=== PATIENT | female | born 1975 | race Caucasian/White ===

== ENCOUNTER 2023-05-11 21:52 | Emergency (ER) | payer MEDICAID, SELFPAY ==
--- NOTE | ~2023-05-11 | CT_ITS ---
CT of the Abdomen and Pelvis: Indication: Right flank pain Technique: 2.5 mm axial scans were obtained through the abdomen and pelvis following intravenous adm inistration of 100 cc of Omnipaque 350. Dose reduction technique was used on this scan by utilizing a utomated exposure control and iterative reconstruction technique. The dose-length product (DLP) was 1 847.55 mGy-cm. Findings: Scans through the lung bases are unremarkable. Diffuse fatty infiltration of the liver noted. Gallstones present. The spleen, pancreas, adrenals and kidneys are within normal limits. No evidence of aortic aneurysm. No lymphadenopathy. No bowel obstruction or bowel wall thickening. There is no evidence to suggest acute appendicitis. Images through the pelvis were performed. Urinary bladder unremarkable. No pelvic mass seen. No ascit es. Impression: Diffuse fatty infiltration of the liver. Cholelithiasis. Reviewed, dictated and finalized at [facility]. R SYSTEM DISPATCHER Impression: Diffuse fatty infiltration of the liver. Cholelithiasis.
[2023-05-11 22:12] VITALS: BP 136/87; PULSE 112; RESP 20; TEMP 37; O2SAT 95
[2023-05-11 22:49] LABS: Appearance Urine Cloudy (Clear); Bacteria Urine 4+ /hpf; Bilirubin Urine Negative (Negative); Blood Urine 2+ (Negative); Color Urine Yellow (Yellow); Glucose Urine UA 3+ mg/dL (Negative); Ketones Urine 2+ mg/dL (Negative); Leukocyte Esterase Ur 1+ LEU/UL (Negative); Nitrate Urine Positive (Negative); Non Pathogenic Casts 0-2; Protein Urine 1+ mg/dL (Negative); RBC Urine 0-2 /hpf (0-2); Squamous Epithelial Cell Urine None seen /hpf (Few); Urobilinogen Urine 0.2 mg/dL (<2.0); WBC Clumps Urine Present /HPF; WBC Urine >100 /hpf; pH Urine 5.5 (5.0-9.0)
[2023-05-11 22:57] LABS: Add Urine Microscopic? YES; Specific Grav Ur 1.037 (1.001-1.035)
--- NOTE | 2023-05-12 00:13 | ED.FEMALEGU ---
HPI - Female Genitourinary General Chief complaint: Urogenital-Female <Boogie Atkins PA-C - Last Filed: 05/12/23 17:02> Stated complaint: urinary incontinence/R flank pain <DANILO Graff Last Filed: 05/12/23 17:02> Time Seen by Provider: 05/11/23 23:41 <DANILO Graff Last Filed: 05/12/23 17:02> Source: patient <DANILO Graff Last Filed: 05/12/23 17:02> Mode of arrival: ambulatory <DANILO Graff Last Filed: 05/12/23 17:02> Limitations: no limitations <DANILO Graff Last Filed: 05/12/23 17:02> History of Present Illness HPI Narrative: This is a 47-year-old female who presents to the ED with chief complaint of urgency and dysuria for the past 6 days intermittently. Reports that she started to have increasing pain in the lower abdomen and right flank. She also reports 3 episodes of vomiting today and is currently nauseous. Reports that the urgency caused a little bit of incontinence today. States she has had a bladder infection in the distant past while but none recently. Denies fevers, chills, chest pain, shortness of breath, diarrhea, any further complaint <Boogie Atkins PA-C - Last Filed: 05/12/23 17:02> Related Data Allergies/Adverse reactions: Allergies Allergy/AdvReac Type Severity Reaction Status Date / Time talc Allergy Unknown POWDER IN Verified 12/07/12 19:08 GLOVES latex Allergy RASH Verified 12/07/12 19:08 naproxen Allergy NAUSEA Verified 12/07/12 19:08 CYCLOBENZAPRINE HCL Allergy Uncoded 12/07/12 19:08 <DANILO Graff Last Filed: 05/12/23 17:02> Review of Systems Review of Systems: All systems as dictated in HPI <DANILO Graff Last Filed: 05/12/23 17:02> Exam Narrative: GENERAL: Well-appearing, well-nourished, and in no acute distress. HEAD: Normocephalic, atraumatic. EYES: PERRLA and EOMI. ENT: Nares clear, no rhinorrhea or epistaxis. Mucous membranes moist. Oropharynx without tonsillar hypertrophy exudate or other lesions. NECK: Supple. No adenopathy or masses. CHEST: No respiratory distress. Clear to auscultation. No wheezes rales or rhonchi HEART: Tachycardic in the 110s. Regular rhythm.. No murmur heard. Normal peripheral pulses. ABDOMEN: Right flank tenderness present. Negative left flank tenderness. Soft, otherwise nontender, nondistended, normal active bowel sounds. MSK: Normal range of motion. No edema. SKIN: Warm, dry, no rash. NEURO: Alert and oriented x3. No focal deficits. PSYCH: Normal mood and affect. <Boogie Atkins PA-C - Last Filed: 05/12/23 17:02> Course GEM CUTTER/PA Physician Supervision This visit was performed by both the physician and an APC. I performed all aspects of the MDM as documented <Paddy Uriarte MD - Last Filed: 05/12/23 05:44> Vital Signs Vital signs: Vital Signs Temperature 98.6 F 05/11/23 22:12 Pulse Rate 112 H 05/11/23 22:12 Respiratory Rate 20 05/11/23 22:12 Blood Pressure 136/87 05/11/23 22:12 Pulse Oximetry 95 05/11/23 22:12 Oxygen Delivery Room Air 05/11/23 22:12 Temperature 98.6 F 05/11/23 22:12 Pulse Rate 72 05/12/23 05:51 Respiratory Rate 14 05/12/23 05:51 Blood Pressure 127/89 05/12/23 05:51 Pulse Oximetry 98 05/12/23 05:51 Oxygen Delivery Room Air 05/11/23 22:12 <Boogie Atkins PA-C - Last Filed: 05/12/23 17:02> Vital Signs Temperature 98.6 F 05/11/23 22:12 Pulse Rate 112 H 05/11/23 22:12 Respiratory Rate 20 05/11/23 22:12 Blood Pressure 136/87 05/11/23 22:12 Pulse Oximetry 95 05/11/23 22:12 Oxygen Delivery Room Air 05/11/23 22:12 Temperature 98.6 F 05/11/23 22:12 Pulse Rate 72 05/12/23 05:51 Respiratory Rate 14 05/12/23 05:51 Blood Pressure 127/89 05/12/23 05:51 Pulse Oximetry 98 05/12/23 05:51 Oxygen Delivery Room Air 05/11/23 22:12 <Paddy Uriarte MD - Last Filed: 05/12/23 05:44> M
[2023-05-12] MEDS: ONDANSETRON INJ 4 MG/2 ML VIAL IV PUSH (00:41)
[2023-05-12] MEDS: MORPHINE SULFATE (*CRX) 4 MG/ML INJ IV PUSH (00:42)
[2023-05-12] MEDS: SODIUM CHLORIDE 0.9% IV 1,000 ML 999 ML IV CONT (00:42)
[2023-05-12 00:58] LABS: Basophils Percent Auto 0.5 % (0.2-1.2); Eosinophils Percent Auto 0.2 % (0-4.4); Hematocrit 49.2 % (37.0-47.0); Hemoglobin 16.5 g/dL (12.0-15.0); Immature Granulocyte Absolute 0.04 K/mm3 (0.00-0.031); Immature Granulocyte Percent A 0.5 % (0-0.5); Lymphocytes Absolute Auto 1.62 K/mm3 (0.9-3.2); Lymphocytes Percent Auto 18.9 % (18.3-44.2); Mean Corpuscular HGB Conc 33.5 g/dl (32-36); Mean Corpuscular Hemoglobin 31.9 pg (26-34); Mean Platelet Volume 9.9 fl (7.4-10.4); Monocytes Absolute Auto 0.7 K/mm3 (0.1-0.6); Monocytes Percent Auto 7.8 % (2.6-8.5); Neutrophils Absolute Auto 6.2 K/mm3 (1.3-6.7); Neutrophils Percent Auto 72.1 % (45.5-73.1); Platelet Count Result 324 k/mm3 (150-375); Red Blood Count 5.18 M/mm3 (4.2-5.4); Red Cell Distribution Width 13.6 % (11.5-14.5); White Blood Count 8.6 K/mm3 (4.5-10.0)
[2023-05-12 01:31] VITALS: BP 129/89; PULSE 95; RESP 16; O2SAT 96
[2023-05-12 01:33] LABS: Alanine Aminotransferase 25 U/L (6-35); Albumin Level 4.6 g/dL (3.5-5.1); Alkaline Phosphatase 59 U/L (38-126); Anion Gap 11 mmol/L (8-16); Aspartate Amino Transferase 20 U/L (14-36); Bilirubin,Total 1.4 mg/dL (0.2-1.3); Blood Urea Nitrogen 7 mg/dL (7-17); CRP 4.6 mg/dL (<1.0); Calcium 9.9 mg/dL (8.4-10.2); Carbon Dioxide 27 mmol/L (22-30); Chloride 99 mmol/L (98-107); Estimated CRCL calculation 124 ml/min; Estimated Glomerular Filt Rate > 60; Glucose 394 mg/dL (65-110); Potassium 3.9 mmol/L (3.4-5.0); Sodium 137 mmol/L (137-145)
[2023-05-12] MEDS: MORPHINE SULFATE (*CRX) 4 MG/ML INJ 2 MG IV PUSH (04:12)
[2023-05-12 04:15] VITALS: BP 130/82; PULSE 75; RESP 15; O2SAT 97
[2023-05-12 05:51] VITALS: BP 127/89; PULSE 72; RESP 14; O2SAT 98
== END 2023-05-12 05:51 | disposition home or self-care (01) ==
PROVIDERS: Physician Assistant; Emergency Provider Emergency Medicine
DX: N39.0 Urinary tract infection, site not specified (principal); K76.0 Fatty (change of) liver, not elsewhere classified; K80.20 Calculus of gallbladder without cholecystitis without obstruction
CPT/HCPCS: 36415; 74177; 80053; 81001; 81025; 85025; 86140; 87077; 87086; 87088; 87186; 96361; 96365; 96375; 96376; 99284; J0696; J2270; J2405; J7030; Q9967

== ENCOUNTER 2023-05-16 13:34 | Emergency (ER) | payer MEDICAID, SELFPAY ==
--- NOTE | ~2023-05-16 | XR_ITS ---
EXAMINATION: XR chest 1V portable DATE: 05/16/2023 16:39 INDICATION: Bilateral lower extremity swelling. Urinary tract infection. TECHNIQUE: A single frontal view of the chest was obtained. COMPARISON: Chest 2 views 06/26/2010, CT abdomen and pelvis 05/12/2023 FINDINGS: There is no pneumonia, pleural effusion, or pneumothorax. The heart size is normal. IMPRESSION: 1. No acute cardiopulmonary disease. Reviewed, dictated and finalized at location A. [employer]
[2023-05-16 13:42] VITALS: BP 169/96; PULSE 86; RESP 16; TEMP 36.9; O2SAT 96
--- NOTE | 2023-05-16 14:00 | PC.NURSE ---
ALFREDO RN WITH [employer] NOTIFIED OF PT'S DILEMMA AND WILL BE DOWN TO SPEAK WITH HER ROBERTO CARLOS
[2023-05-16 14:11] LABS: Basophils Absolute Auto 0.1 K/mm3 (0.0-0.1); Eosinophils Absolute Auto 0.1 K/mm3 (0-0.3); Eosinophils Percent Auto 2.3 % (0-4.4); Hematocrit 46.7 % (37.0-47.0); Hemoglobin 16.3 g/dL (12.0-15.0); Immature Granulocyte Absolute 0.04 K/mm3 (0.00-0.031); Immature Granulocyte Percent A 0.7 % (0-0.5); Lymphocytes Absolute Auto 1.86 K/mm3 (0.9-3.2); Lymphocytes Percent Auto 30.2 % (18.3-44.2); Mean Corpuscular HGB Conc 34.9 g/dl (32-36); Mean Corpuscular Hemoglobin 32.3 pg (26-34); Mean Corpuscular Volume 92.5 fl (80-100); Mean Platelet Volume 9.9 fl (7.4-10.4); Monocytes Absolute Auto 0.4 K/mm3 (0.1-0.6); Monocytes Percent Auto 6.8 % (2.6-8.5); Neutrophils Absolute Auto 3.6 K/mm3 (1.3-6.7); Platelet Count Result 285 k/mm3 (150-375); Red Blood Count 5.05 M/mm3 (4.2-5.4); Red Cell Distribution Width 13.3 % (11.5-14.5); White Blood Count 6.2 K/mm3 (4.5-10.0)
[2023-05-16 14:19] LABS: Alanine Aminotransferase 25 U/L (6-35); Albumin Level 4.3 g/dL (3.5-5.1); Alkaline Phosphatase 52 U/L (38-126); Anion Gap 9 mmol/L (8-16); Aspartate Amino Transferase 20 U/L (14-36); Bilirubin,Total 0.6 mg/dL (0.2-1.3); Blood Urea Nitrogen 6 mg/dL (7-17); Calcium 9.3 mg/dL (8.4-10.2); Carbon Dioxide 29 mmol/L (22-30); Chloride 99 mmol/L (98-107); Estimated CRCL calculation 139 ml/min; Estimated Glomerular Filt Rate > 60; Glucose 262 mg/dL (65-110); Potassium 3.7 mmol/L (3.4-5.0); Sodium 137 mmol/L (137-145)
--- NOTE | 2023-05-16 15:53 | ECG_ITS ---
Measurements Intervals [place] Rate: 75 P: IN: 0 QRS: -13 QRSD: 97 T: 6 QT: 390 QTc: 438 Interpretive Statements ATRIAL FIBRILLATION VENTRICULAR PREMATURE COMPLEXES DELAYED PRECORDIAL R/S TRANSITION VOLTAGE CRITERIA FOR LVH BORDERLINE ECG NO PREVIOUS ECG AVAILABLE FOR COMPARISON Electronically Signed On 05-16-2023 16:51:38 [employer]ICOT KNITTING MACHINE OPERATOR by Carl Cormier D.O.
--- NOTE | 2023-05-16 15:54 | ED.EXTPRO ---
HPI - Extremity Problem General Chief complaint: Extremity Problem,Nontraumatic Stated complaint: feet and leg swelling Time Seen by Provider: 05/16/23 15:42 History of Present Illness HPI Narrative: 47-year-old female present to the emergency department evaluation of lower leg swelling. Patient was seen in the emergency department a few days ago and diagnosed with a urinary tract infection. Patient states he is unable to get the antibiotic filled due to insurance issues. Patient states she is also had increased leg swelling. Patient denies any associated shortness of breath. Patient denies any history of PE or DVT. Related Data Allergies Allergy/AdvReac Type Severity Reaction Status Date / Time talc Allergy Unknown POWDER IN Verified 12/07/12 19:08 GLOVES latex Allergy RASH Verified 12/07/12 19:08 CYCLOBENZAPRINE HCL Allergy Dizziness Uncoded 05/16/23 15:13 Review of Systems Review of Systems: All systems reviewed & are unremarkable except as noted in HPI and below Exam Narrative: APPEARANCE: Well appearing, no pain, no distress, well-nourished. HEAD: normocephalic, atraumatic. EYES: PERRLA/EOMI, conjunctivae clear. NOSE: Normal no drainage NECK: Supple. No adenopathy, no masses. RESPIRATORY: Airway patent, respirations nonlabored. Clear to auscultation bilaterally, no rales, rhonchi, wheezing. CARDIOVASCULAR: Regular rate and rhythm without murmurs rubs or gallops. ABDOMINAL: Soft, nontender, nondistended, normal bowel sounds MUSCULOSKELETAL: Bilateral lower extremity edema NEURO: Alert. Cranial nerves II through XII intact. Good gait. Good coordination SKIN: Warm, dry. Normal Color Course Course Emergency Course: 47-year-old female present emergency department for evaluation of lower extremity edema bilaterally. Patient denies any chest pain or shortness of breath. Patient is afebrile with no leukocytosis and a stable hemoglobin. No significant electrolyte abnormalities. UA showed no evidence of infection. Chest x-ray showed no acute cardial pulm abnormality. EKG showed normal sinus rhythm. Patient most likely has dependent edema. Patient was treated with a single dose of Lasix. Patient urine showed no evidence of infection so patient was not continued on antibiotics. Patient was encouraged to continue close follow-up with her primary care physician. All question concerns were addressed Vital Signs Vital signs: Vital Signs Temperature 98.5 F 05/16/23 13:42 Pulse Rate 86 05/16/23 13:42 Respiratory Rate 16 05/16/23 13:42 Blood Pressure 169/96 H 05/16/23 13:42 Pulse Oximetry 96 05/16/23 13:42 Temperature 98.5 F 05/16/23 13:42 Pulse Rate 69 05/16/23 17:17 Respiratory Rate 22 H 05/16/23 17:17 Blood Pressure 140/84 05/16/23 17:17 Pulse Oximetry 98 05/16/23 17:17 MDM - Extremity (Nontraumatic) Lab Data 05/16/23 14:03 05/16/23 14:03 Labs: Lab Results 05/16/23 05/16/23 05/16/23 Range/Units 14:02 14:03 16:08 WBC 6.2 (4.5-10.0) K/mm3 RBC 5.05 (4.2-5.4) M/mm3 Hgb 16.3 H (12.0-15.0) g/dL Hct 46.7 (37.0-47.0) % MCV 92.5 (80-100) fl MCH 32.3 (26-34) pg MCHC 34.9 (32-36) g/dl RDW 13.3 (11.5-14.5) % Plt Count 285 (150-375) k/mm3 MPV 9.9 (7.4-10.4) fl Immature Gran % (Auto) 0.7 H (0-0.5) % Neut % (Auto) 59.0 (45.5-73.1) % Lymph % (Auto) 30.2 (18.3-44.2) % [place] % (Auto) 6.8 (2.6-8.5) % Eos % (Auto) 2.3 (0-4.4) % Baso % (Auto) 1.0 (0.2-1.2) % Lymph # (Auto) 1.86 (0.9-3.2) K/mm3 [place] # (Auto) 0.4 (0.1-0.6) K/mm3 Eos # (Auto) 0.1 (0-0.3) K/mm3 Baso # (Auto) 0.1 (0.0-0.1) K/mm3 Abs Immat Gran (auto) 0.04 H (0.00-0.031) K/mm3 Absolute Neuts (auto) 3.6 (1.3-6.7) K/mm3 Absolute Nucleated RBC 0.0 (0.0-0.012) K/mm3 Nucleated RBC % 0.0 (0.0-0.2) % Sodium 137 (137-145) mmol/L Potassium 3.7 (3.4-5.0) mmol/L Chlor
[2023-05-16 16:19] LABS: NT Pro B Type Natriuretic Pept 159 pg/mL (19.9-100)
[2023-05-16 16:31] LABS: Add Urine Microscopic? YES; Appearance Urine Cloudy (Clear); Bacteria Urine None Seen /hpf; Bilirubin Urine Negative (Negative); Blood Urine Negative (Negative); Color Urine Yellow (Yellow); Glucose Urine UA 3+ mg/dL (Negative); Ketones Urine Negative (Negative); Leukocyte Esterase Ur Negative LEU/UL (Negative); Need Manual Microscopic Reviewed; Nitrate Urine Negative (Negative); Non Pathogenic Casts 0-2; Protein Urine Negative (Negative); RBC Urine 0-2 /hpf (0-2); Specific Grav Ur 1.022 (1.001-1.035); Squamous Epithelial Cell Urine Occasional /hpf (Few); Urobilinogen Urine 0.2 mg/dL (<2.0); WBC Urine 0-5 /hpf
[2023-05-16 16:39] VITALS: PULSE 75; RESP 18
[2023-05-16 16:45] VITALS: PULSE 74; RESP 16
[2023-05-16] MEDS: FUROSEMIDE TABLET 20 MG, FUROSEMIDE TABLET 40 MG 60 MG PO (16:58)
[2023-05-16 16:59] VITALS: BP 149/97; PULSE 75; RESP 20; O2SAT 97
[2023-05-16 17:00] VITALS: PULSE 72; RESP 14
[2023-05-16 17:17] VITALS: BP 140/84; PULSE 69; RESP 22; O2SAT 98
== END 2023-05-16 17:27 | disposition home or self-care (01) ==
PROVIDERS: Emergency Medicine; Emergency Provider Emergency Medicine
DX: R60.0 Localized edema (principal); I49.3 Ventricular premature depolarization
CPT/HCPCS: 36415; 71045; 80053; 81001; 83880; 85025; 93005; 99283; A9270

== ENCOUNTER 2023-05-23 19:53 | Emergency (ER) | payer MEDICAID, SELFPAY ==
[2023-05-23 20:09] VITALS: BP 114/85; PULSE 93; RESP 15; TEMP 36.3; O2SAT 100
--- NOTE | 2023-05-23 20:40 | ED.LOWEXIN ---
HPI - Extremity Injury (Lower) General Chief Complaint: Extremity Injury, Lower Stated Complaint: bilateral leg pain Time Seen by Provider: 05/23/23 20:27 Source: patient Limitations: no limitations History of Present Illness HPI Narrative: This is a 47-year-old female who presents with bilateral leg pain that began acutely at 5:30 p.m. while seated, Riding the bus. She denies any exertion or tearing sensation. She denies wearing a belt or tight pants at the time. She is having pain along the lateral aspect of her bilateral upper thighs which she describes as a burning as well as numbness and tingling. She has what feels like a Charley horses. The pain was intense enough that she fell to the floor. This never happened before. She denies any saddle anesthesia. No history of DVT or PE. Of note, she was recently seen for lower extremity edema in the emergency department and given a dose of Lasix but does not take this medication chronically. She denies any abdominal pain. No diagnosis of diabetes. Related Data Allergies Allergy/AdvReac Type Severity Reaction Status Date / Time talc Allergy Unknown POWDER IN Verified 12/07/12 19:08 GLOVES latex Allergy RASH Verified 12/07/12 19:08 CYCLOBENZAPRINE HCL Allergy Dizziness Uncoded 05/16/23 15:13 [facility] Social History Social History (Updated 05/23/23 @ 21:43 by Serena Tam MD) Social History: Recently moved to the area in 2022 Exam Narrative: GENERAL: Well-appearing, well-nourished, and in no acute distress. HEAD: Normocephalic, atraumatic. ENT: Nares clear, no rhinorrhea or epistaxis. NECK: Supple. CHEST: No respiratory distress. Speaking in full sentences. HEART: Regular rate and rhythm. Normal DP peripheral pulses. ABDOMEN: Obese, Soft, nontender, nondistended EXTREMITIES: Normal range of motion. No pretibial edema. 5/5 strength with Bilateral hip flexion. Knee flexion and extension, bilateral ankle dorsiflexion plantar flexion. legs are grossly symmetric. SKIN: Warm, dry, no rash. Legs are not erythematous in her without overlying skin changes NEURO: No focal deficits. Alert and oriented x3. Brisk patellar reflex right; difficulty obtaining on the left initially but strong ankle reflex on the left is appreciated. Patient able to stand and bear weight. Sensation intact to gross touch throughout . PSYCH: Normal mood and affect. Course Vital Signs Vital signs: Vital Signs Temperature 97.4 F L 05/23/23 20:09 Pulse Rate 93 05/23/23 20:09 Respiratory Rate 15 05/23/23 20:09 Blood Pressure 114/85 05/23/23 20:09 Pulse Oximetry 100 05/23/23 20:09 Oxygen Delivery Room Air 05/23/23 20:09 Temperature 97.4 F L 05/23/23 20:09 Pulse Rate 93 05/23/23 20:09 Respiratory Rate 15 05/23/23 20:09 Blood Pressure 114/85 05/23/23 20:09 Pulse Oximetry 100 05/23/23 20:09 Oxygen Delivery Room Air 05/23/23 20:09 MDM - Extremity Injury (Lower) MDM Narrative Medical decision making narrative: Patient presents with bilateral leg pain that began while seated, radial pulse. She describes burning sensation in her lateral upper thighs. Physical exam is reassuring. Based on description and location of pain, suspect possible meralgia paresthetica/cutaneous femoral nerve involvement. CPK and D-dimer are normal. It was noted that patient's blood glucose is elevated but without an anion gap or acidosis. This, as well as body habitus, is also consistent with increased risk of meralgia paresthetica. I discussed this diagnosis with patient. We will give her a dose of NSAIDs here and she is prescribed the same for outpatient. Patient states they recently moved to the area and she does not have a primary care provider. Given this, she will be referred to the Medicine attending on this date/ time for that purpose for further management/monitoring of blood sugar as well as continued evaluation/assessment of her leg pain. . Dif
[2023-05-23 20:59] LABS: Basophils Percent Auto 0.5 % (0.2-1.2); Eosinophils Absolute Auto 0.1 K/mm3 (0-0.3); Eosinophils Percent Auto 0.6 % (0-4.4); Hematocrit 46.6 % (37.0-47.0); Hemoglobin 16.2 g/dL (12.0-15.0); Immature Granulocyte Absolute 0.02 K/mm3 (0.00-0.031); Immature Granulocyte Percent A 0.2 % (0-0.5); Lymphocytes Absolute Auto 1.28 K/mm3 (0.9-3.2); Lymphocytes Percent Auto 15.3 % (18.3-44.2); Mean Corpuscular HGB Conc 34.8 g/dl (32-36); Mean Corpuscular Hemoglobin 32.4 pg (26-34); Mean Corpuscular Volume 93.2 fl (80-100); Mean Platelet Volume 10.3 fl (7.4-10.4); Monocytes Absolute Auto 0.5 K/mm3 (0.1-0.6); Monocytes Percent Auto 5.9 % (2.6-8.5); Neutrophils Absolute Auto 6.5 K/mm3 (1.3-6.7); Neutrophils Percent Auto 77.5 % (45.5-73.1); Platelet Count Result 262 k/mm3 (150-375); Red Cell Distribution Width 13.6 % (11.5-14.5); White Blood Count 8.3 K/mm3 (4.5-10.0)
[2023-05-23 21:08] LABS: Anion Gap 11 mmol/L (8-16); Blood Urea Nitrogen 9 mg/dL (7-17); Calcium 9.1 mg/dL (8.4-10.2); Carbon Dioxide 25 mmol/L (22-30); Chloride 101 mmol/L (98-107); Creatine Kinase 68 U/L (30-135); Estimated CRCL calculation 108 ml/min; Estimated Glomerular Filt Rate > 60; Glucose 331 mg/dL (65-110); Magnesium 1.6 mg/dL (1.6-2.3); Potassium 3.8 mmol/L (3.4-5.0); Sodium 137 mmol/L (137-145)
[2023-05-23 21:17] LABS: D Dimer 0.39 ug/mL (<0.48)
[2023-05-23] MEDS: HYDROcodone/acetaminophen (*CRX) 5-325 MG TABLET 1 TAB PO (21:47)
[2023-05-23] MEDS: IBUPROFEN 600 MG TABLET PO (21:48)
== END 2023-05-23 21:54 | disposition home or self-care (01) ==
PROVIDERS: Emergency Provider Student in an Organized Health Care Education/Training Program
DX: G57.13 Meralgia paresthetica, bilateral lower limbs (principal)
CPT/HCPCS: 36415; 80048; 82550; 83735; 85025; 85380; 99283; A9270